=== PATIENT | male | born 1955 | race Caucasian/White ===

== ENCOUNTER → 2017-02-22 | Outpatient (CLI) | payer MEDICARE, SELFPAY | PROVIDERS: PCP Family Medicine; Visit Provider Family Medicine | DX: I71.4 Abdominal aortic aneurysm, without rupture (principal) | CPT/HCPCS: 76705 ==

== ENCOUNTER 2024-02-12 06:47 | Outpatient (CLI) | payer MEDICARE, SELFPAY ==
--- NOTE | 2024-02-12 06:51 | US_ITS ---
FINAL REPORT CLINICAL HISTORY: .aaa screening COMPARISON: None FINDINGS: ULTRASOUND ABDOMINAL AORTA Findings: Sagittal and transverse images with Doppler exam was performed of the aorta. Aorta measures up to 3.1 cm. Mild plaque disease is noted. Proximal iliac vessels are normal in caliber. Aorta is patent by Doppler exam without gross stenosis. IMPRESSION: 3.1 cm small abdominal aortic aneurysm with mild plaque disease. Reviewed, Interpreted and Dictated by Sheree Hammonds MD Transcribed by Ary Obregon Authenticated and [facility]
== END 2024-02-12 23:59 | disposition home or self-care (01) ==
LOC: RAD 06:49
PROVIDERS: PCP Nurse Practitioner; Visit Provider Nurse Practitioner
DX: I71.9 Aortic aneurysm of unspecified site, without rupture (principal)
CPT/HCPCS: 76770